=== PATIENT | male | born 1960 | race Caucasian/White ===

== ENCOUNTER 2017-08-16 11:57 | Outpatient (CLI) | payer MEDICARE ==
--- NOTE | 2017-08-16 13:25 | SJPRAD ---
RIGHT KNEE 4 VIEWS: Date: 08/16/17 HISTORY: Knee fracture. Knee pain. Follow-up. FINDINGS: Joint space narrowing is most pronounced at the medial compartment with prominent tricompartmental o steophytosis. No acute fracture or dislocation are apparent. Well corticated ossification at the sup erolateral margin of the patella has the appearance of a bipartite patella. There is anterior protru rommel on the oblique view. Osteochondroma projects posteriorly from the distal femoral shaft on the l ateral view. IMPRESSION: 1. Bipartite patella. 2. Osteochondroma posterior aspect distal right femoral shaft. 3. Osteoarthritis right knee. POS: [facility]
== END 2017-08-16 11:58 | disposition home or self-care (01) ==
LOC: MWLC RAD 11:57
PROVIDERS: ATTEND Internal Medicine Geriatric Medicine
DX: M25.561 Pain in right knee (principal); M17.11 Unilateral primary osteoarthritis, right knee; D16.21 Benign neoplasm of long bones of right lower limb; Q74.1 Congenital malformation of knee

== ENCOUNTER 2017-09-30 12:09 | Outpatient (CLI) | payer MEDICARE ==
[~2017-09-30 12:09] MED LIST: Iopamidol 370 76% 100 ML VIAL ONE
--- NOTE | 2017-09-30 15:41 | CT ---
EXAM: CT ANGIOGRAM OF THE CHEST 09/30/17 HISTORY: Possible aortic root aneurysm. COMPARISON: None. TECHNIQUE: CT angiogram of the chest is performed in the axial plane. Sagittal and coronal as well as oblique th ree dimensional reformatted images are submitted for interpretation. FINDINGS: No mediastinal mass, lymphadenopathy or hematoma. Heart size is within normal limits. No significant pericardial fluid. Minimal nonspecific right hilar fullness. There is adequate contrast opacification of the pulmonary arterial system to the level of the lobar arteries. No filling defect to suggest th romboembolism. Trachea and central bronchi are parent. No suspicious masses in the lung parenchyma. No consolidation . No pleural effusion. No pneumothorax. Minimal patchy ground glass opacities and linear opacities in both lower lobes. There are nonspecific and incompletely evaluated peripancreatic lymph node. 1.4 cm hyperdensity in th e right hepatic lobe may represent a flash filling hemangioma, incompletely evaluated. There are no l ytic or blastic lesions. The root of the aorta, ascending thoracic aorta, aortic arch, descending thoracic aorta and upper abd ominal aorta have a normal caliber. No aneurysm, dissection, or periaortic fat stranding. IMPRESSION: 1. No evidence of aneurysm with regards to the aorta. 2. Incompletely evaluated peripancreatic lymph nodes as well as presumed flash filling hemangiom a of the liver. Liver mass protocol CT or abdomen MRI can be performed. Code T POS: DEE
== END 2017-09-30 12:10 | disposition home or self-care (01) ==
LOC: CT 12:09
PROVIDERS: ATTEND Internal Medicine Cardiovascular Disease
DX: Z01.810 Encounter for preprocedural cardiovascular examination (principal); R06.02 Shortness of breath
CPT/HCPCS: 71275

== ENCOUNTER 2017-11-22 09:26 | Outpatient (CLI) | payer MEDICARE ==
[2017-11-22 13:49] LABS: #Eosinphils 0.1 thou/uL (0.0-0.7); #Lymphocytes 2.8 thou/uL (1.20-3.40); #Monocytes 0.7 thou/uL (0.11-0.59); #Neutrophils 4.1 thou/uL (1.40-6.50); %Basophils 0.4 % (0.0-1.0); %Eosinophils 0.9 % (0.0-10.0); %Monocytes 9.4 % (0.0-10.0); %Neutrophils 53.3 % (42.0-75.0); Hemoglobin 14.5 g/dL (14.0-18.0); Mean Corpuscular HGB CONC 33.7 g/dL (32.0-36.0); Mean Corpuscular Hemoglobin 30.7 pg (27.0-31.0); Mean Corpuscular Volume 90.9 fl (80.0-94.0); Platelet Count 198 thou/uL (130-400); Red Blood Cell (RBC) Count 4.73 mill/uL (4.70-6.10); White Blood Cell (WBC) Count 7.8 thou/uL (4.8-10.8)
[2017-11-22 13:52] LABS: Bilirubin Negative (Negative); Blood, Urine Negative (Negative); Clarity CLEAR (Clear); Glucose, Urine (Dipstick) Negative (Negative); Leukocyte Negative (Negative); Nitrite Negative (Negative); Protein, Urine (Dipstick) Negative (Neg-Trace); Prothrombin Time 13.4 SEC (12.0-14.7); Specific Gravity, Urine 1.011 (1.002-1.036); pH, Urine 7.5 (5.0-9.0)
[2017-11-22 13:58] LABS: Bacteria/HPF None Seen HPF (None Seen); Hyaline Casts/LPF 0-3 HYALINE CAST LPF (0-3 Hyaline); RBC/HPF 0-3 HPF (0-3); Squamous Epithelial None Seen HPF (0-3); WBC/HPF None Seen HPF (0-3)
[2017-11-22 14:43] LABS: Anion Gap 17 mmol/L (10-20); BUN (Urea Nitrogen) 12 mg/dL (8.4-25.7); Calc. Creatinine Clearance 0 mL/min (70-130); Calcium 9.1 mg/dL (7.8-10.44); Carbon Dioxide 25 mmol/L (22-29); Chloride 103 mmol/L (98-107); Estimated GFR-MDRD 82; Glucose 91 mg/dL (70-105); Potassium 4.5 mmol/L (3.5-5.1); Sodium 140 mmol/L (136-145)
--- NOTE | 2018-01-23 21:27 | EKG ---
Test Reason : Blood Pressure : / mmHG Vent. Rate : 053 BPM Atrial Rate : 053 BPM P-R Int : 158 ms QRS Dur : 100 ms QT Int : 440 ms P-R-T Axes : 053 045 026 degrees QTc Int : 412 ms Sinus bradycardia with Premature atrial complexes Otherwise normal ECG No previous ECGs available Confirmed by FENG PUENTE M.D. ([id number]) on 01/23/2018 9:27:07 PM Referred By: RUSSELL Confirmed By:FENG PUENTE M.D.
== END 2017-11-22 09:27 | disposition home or self-care (01) ==
LOC: LABBT 09:26
PROVIDERS: ATTEND Orthopaedic Surgery
DX: Z01.810 Encounter for preprocedural cardiovascular examination (principal); Z01.812 Encounter for preprocedural laboratory examination; M17.11 Unilateral primary osteoarthritis, right knee
CPT/HCPCS: 80048; 81001; 85025; 85610; 86850; 86900; 86901; 93005; 93010

== ENCOUNTER 2017-11-29 05:35 | Day surgery (SDC) | payer MEDICARE ==
[2017-11-22 09:37] VITALS: BMI 35.9
[2017-11-29] MEDS ORDERED: CEFAZOLIN/Water 2 GM/20 ML SYRINGE ONE (05:52)
[2017-11-29] MEDS ORDERED: Tranexamic Acid 1,000 MG/100 ML BAG ONE ×2 (05:52→10:00)
[2017-11-29] MEDS ORDERED: Fentanyl 100 MCG/2 ML VIAL ONE ×3 (06:27→10:18)
[2017-11-29] MEDS ORDERED: Midazolam HCl 2 mg/2 ml Vial ONE (06:27)
[2017-11-29] MEDS ORDERED: Ropivacaine 0.2% HCl/PF 20 ML ONE (06:27)
[2017-11-29] MEDS ORDERED: Bupivacaine 0.25% HCL 30 ML VIAL ONE (06:30)
[2017-11-29] MEDS ORDERED: Lidocaine 1% w/Epinephrine 1:200K 30 ML VIAL ONE (06:30)
[2017-11-29] MEDS ORDERED: HYDROmorphone 0.5 MG/0.5 ML SYRINGE ONE ×2 (08:04→08:11)
[2017-11-29] MEDS ORDERED: Promethazine HCl 25 MG/ML VIAL IM PRN ×3 (09:28→10:10)
[2017-11-29] MEDS ORDERED: Ondansetron HCl/PF 4 MG/2 ML Vial IVP PRN ×3 (09:28→10:10)
[2017-11-29] MEDS ORDERED: Zolpidem Tartrate 5 MG TAB PO PRN ×2 (09:28→10:10)
[2017-11-29] MEDS ORDERED: HYDROcodone/Acetaminophen 10/325 mg Tablet PO PRN ×2 (09:28)
[2017-11-29] MEDS ORDERED: Acetaminophen 325 MG TAB PO PRN (09:28)
[2017-11-29] MEDS ORDERED: diphenhydrAMINE 25 MG CAP PO PRN ×2 (09:28→10:10)
[2017-11-29] MEDS ORDERED: Fentanyl 100 MCG/2 ML VIAL SLOW IVP PRN ×2 (09:28)
[2017-11-29] MEDS ORDERED: traMADol HCl 50 MG TAB PO PRN (09:28)
[2017-11-29] MEDS ORDERED: Promethazine HCl 25 MG/ML VIAL SLOW IVP PRN (09:42)
[2017-11-29] MEDS ORDERED: diphenhydrAMINE 50 MG/ML VIAL IM/IV PRN (10:10)
[2017-11-29] MEDS ORDERED: Naloxone HCl 0.4 mg/ml Vial IV PRN (10:10)
[2017-11-29] MEDS ORDERED: Acetaminophen 1,000 MG in Premix Bag 1 BAG IVPB PRN (10:11)
[2017-11-29] MEDS ORDERED: fentaNYL Citrate/PF 2,000 MCG in Sodium Chloride 0.9% 60 ML IV PRN (10:15)
[2017-11-29] MEDS ORDERED: HYDROmorphone 2 MG/ML VIAL SLOW IVP PRN (10:52)
--- NOTE | 2017-11-29 11:09 | OP ---
DATE OF PROCEDURE: 11/29/2017 PREOPERATIVE DIAGNOSIS: Right knee osteoarthritis. POSTOPERATIVE DIAGNOSIS: Right knee osteoarthritis. PROCEDURE PERFORMED: Right total knee arthroplasty. STAFF: Nadeem Castro M.D. CAPACITOR ASSEMBLER: Don Cabral PA-C ANESTHESIA: Yamile. The patient received LMA, single shot Adductor and sciatic injection ESTIMATED BLOOD LOSS: 100 mL. TOURNIQUET TIME: 89 minutes at 300 mmHg. ANTIBIOTICS: Vancomycin 2 grams, Ancef 2 grams. IMPLANTS: [place] triatholon size 7 tibia, size 7 CR femur, 11 mm CS poly, A35 symmetric poly Triathlon [place] X3 poly. COMPLICATIONS: None. HISTORY OF PRESENT ILLNESS: Mr. Chan is a pleasant 57-year-old male with multiple medical problems, history of a traumatic brain injury, history of hepatitis C. The patient has a history of a stroke, history of Staph infection, partial paralysis and heart disease. The patient presented with a right knee osteoarthritis. I discussed with patient the risks and benefits of a right total knee arthroplasty to include pain, scar, bleeding, infection, and damage to vital structures, decreased range of motion or strength, failure of procedure , continued pain despite surgical intervention, failure of procedure, decreased range of motion or strength, need for further surgeries, damage to vital structures, loss of life or limb. The patient understood these risks and benefits and elected to proceed. PROCEDURE IN DETAIL: A timeout was performed designating the patient's right lower extremity as the operative site based on sight, consents and markings. After timeout, the tourniquet was brought up and left up for a total of 90 minutes. The patient had intramedullary medial patellar arthrotomy. He had a bipartite patella, had large osteophytes. After we had done our medial approach the medial soft tissue release, we did fat pad excision. We then everted the patella, subluxed the patella, started mapping out our distal femur , cut 0 degrees varus valgus, 10, 11 and 4 degrees posterior slope. We cut the patient's bone, no notch, he had a little bit of flexion contracture. We were able to take 4 mm of the cartilage, 2 mm more of the cartilage. We then placed and sized a 7. I liked the overall position of the 7. We then cut our box for our 7 based on 30 degrees of external rotation of the epicondyle axis. We removed the osteophytes. We then removed the bone fragments. We then placed our pickle fork in position, released our PCL, exposed our proximal tibia, mapped out the tibia and cut in -170 degrees varus valgus and 5 degrees posterior slope. We removed the osteophytes, placed our lamina job honer, removed the posterior osteophytes, decompressed the PCL, removed the posterior osteophytes from the help of our extension, removed our medial osteophytes with osteotome and to protect our MCL, we then removed our medial and lateral meniscus. We then trialed with a 7 tray and 9, moved up to an 11. He had good extension, good stability, flexion and extension, good translation overall, had good overall alignment. We then everted the patella, went from 24 to about 14 mm and placed an A32 patella, and removed all osteophytes. The patient had good tracking of the femur, I liked the overall alignment. We then removed our final components, drilled our holes for our femur and cut our keel for our tibia. We then cemented our tibia, placed our poly, removed the excess cement, placed our femur, removed excess cement and cemented our patellar, closed with # 2 Vicryl, 2 Quill, 0 Quill, 2-0 Quill, and glue. The patient will be observed overnight. The patient will be followed in-house by Anesthesia for a block. The patient's outlook is guarded. He may require a rehab consult. LULA
[2017-11-29] MEDS: Ketorolac Tromethamine 30 MG/ML VIAL IVP SCH ×2 (12:45→17:54)
[2017-11-29] MEDS: Dextrose 5 %-0.45 % NaCl 1,000 ML IV SCH ×2 (12:46→20:06)
[2017-11-29] MEDS ORDERED: Diabetic Tussin 200 MG/10 ML UDCUP PO PRN (13:47)
[2017-11-29] MEDS ORDERED: Sodium Chloride 0.65% Nasal 44 ML BOT EA NARE PRN (13:47)
[2017-11-29] MEDS ORDERED: Chloraseptic Spray 180 ml Bottle PO PRN (13:47)
[2017-11-29] MEDS ORDERED: Mag-Al 1200 mg/1200 mg/30 ML UDCUP PO PRN (13:47)
[2017-11-29] MEDS ORDERED: Bisacodyl 10 MG SUPP PR PRN (13:47)
[2017-11-29] MEDS ORDERED: Milk Of Magnesia 30 ML UDCUP PO PRN (13:47)
[2017-11-29] MEDS ORDERED: Loratadine 10 MG TAB PO PRN (13:47)
[2017-11-29] MEDS ORDERED: Senokot 8.6 MG TAB PO PRN (13:47)
[2017-11-29] MEDS ORDERED: hydrALAZINE 20 MG/ML VIAL SLOW IVP PRN (13:47)
[2017-11-29] MEDS ORDERED: HYDROcodone/Acetaminophen 5/325 mg Tablet PO PRN (13:47)
[2017-11-29] MEDS ORDERED: Artificial Tear Sol 15 ML BOT EA EYE PRN (13:47)
[2017-11-29] MEDS ORDERED: Loperamide HCl 2 MG CAP PO PRN (13:47)
[2017-11-29] MEDS ORDERED: Eucerin (Mineral Oil/Petrolatum,White) 30 gm Jar TOP PRN (13:47)
[2017-11-29] MEDS ORDERED: Ketorolac Tromethamine 30 MG/ML VIAL IVP SCH (14:00)
--- NOTE | 2017-11-29 14:20 | PDOC.PN ---
- Subjective Encounter Start Date: 11/29/17 Encounter Start Time: 14:19 -: old records requested/rev Patient seen and examined. No new complaints. No overnight events s/p Knee replacement, nerve block did not work, so PAPER CONSERVATOR started, he required oxygen for low sats, no chest pain, dizziness - Objective MAR Reviewed: Yes Vital Signs & Weight: Vital Signs (12 hours) Temp Pulse Resp BP Pulse Ox 11/29/17 13:35 97.7 F 81 16 136/95 H 81 L Weight Weight 280 lb 0.005 oz Phys Exam - Physical Examination Constitutional: NAD HEENT: PERRLA, moist MMs, sclera anicteric Neck: no JVD, supple Respiratory: no wheezing, no rales, no rhonchi Cardiovascular: RRR, no significant murmur, no rub Gastrointestinal: soft, non-tender, no distention, positive bowel sounds obesity Musculoskeletal: no edema, pulses present right knee with dressing Neurological: non-focal, normal sensation Psychiatric: normal affect, A&O x 3 Skin: no rash, normal turgor Dx/Plan (1) Status post total right knee replacement Code(s): Z96.651 - PRESENCE OF RIGHT ARTIFICIAL KNEE JOINT Status: Acute (2) Dyslipidemia Code(s): E78.5 - HYPERLIPIDEMIA, UNSPECIFIED Status: Chronic Comment: not on any treatment (3) Anxiety and depression Code(s): F41.8 - OTHER SPECIFIED ANXIETY DISORDERS Status: Chronic Comment: not on treatment (4) Obesity (BMI 30-39.9) Code(s): E66.9 - OBESITY, UNSPECIFIED Status: Chronic (5) Dementia Code(s): F03.90 - UNSPECIFIED DEMENTIA WITHOUT BEHAVIORAL DISTURBANCE Status: Chronic Qualifiers: Dementia type: unspecified type Dementia behavioral disturbance: without behavioral disturbance Qualified Code(s): F03.90 - Unspecified dementia without behavioral disturbance Comment: mild after head injury - Plan cont current plan of care, PT/OT * Continue aspirin 81 mg po bid for DVT prophylaxis * PRN order written * Pepcid for GI prophylaxis * continue PT/OT as per [facility] protocol * pain control * continue ferrous gluconate * medication reviewed as below * symptomatic treatment * code status- Full code. * discussed with bedside * continue PAPER CONSERVATOR for pain control Review of Systems - Review of Systems Eyes: negative: Pain, Vision Change, Conjunctivae Inflammation, Eyelid Inflammation, Redness, Other ENT: negative: Ear Pain, Ear Discharge, Nose Pain, Nose Discharge, Nose Congestion, Mouth Pain, Mouth Swelling, Throat Pain, Throat Swelling, Other Respiratory: negative: Cough, Dry, Shortness of Breath, Hemoptysis, SOB with Excertion, Pleuritic Pain, Sputum, Wheezing Cardiovascular: negative: chest pain, palpitations, orthopnea, paroxysmal nocturnal dyspnea, edema, light headedness, other Gastrointestinal: negative: Nausea, Vomiting, Abdominal Pain, Diarrhea, Constipation, Melena, Hematochezia, Other Genitourinary: negative: Dysuria, Frequency, Incontinence, Hematuria, Retention , Other Musculoskeletal: negative: Neck Pain, Shoulder Pain, Arm Pain, Back Pain, Hand Pain, Leg Pain, Foot Pain, Other Skin: negative: Rash, Lesions, Tyler, Bruising, Other - Medications/Allergies Allergies/Adverse Reactions: Allergies Allergy/AdvReac Type Severity Reaction Status Date / Time No Known Allergies Allergy Unverified 11/22/17 09:37 Medications: Current Medications Acetaminophen (Tylenol) 650 mg PO Q4H PRN PRN Reason: ROJAS/ T > 101F; Mild Pain (1-3) Hydrocodone Bitart/Acetaminophen ([place] 5/325) 1 tab PO Q4H PRN PRN Reason: Moderate Pain (4-6) Al Hydroxide/Mg Hydroxide (Maalox) 15 ml PO Q4H PRN PRN Reason: Heartburn or Indigestion Artificial Tears (Tears Renewed 15ml Bottle) 0 drop EA EYE PRN PRN PRN Reason: Dry Eyes Aspirin (Ecotrin) 81 mg PO BID KELSY Bisacodyl (Dulcolax) 10 mg DE DAILYPRN PRN PRN Reason: Constipation Cefazolin Sodium (Ancef) 2 gm SLOW IVP Q8HR [facility] Stop: 11/29/17 22:01 Diphenhydramine HCl (Benadryl) 25 mg PO Q6H PRN PRN Reason: Itching Diphenhydramine HCl (Benadryl) 25 mg IM/IV Q3H PRN PRN Reason: Itching Diphenhydramine HCl (Benadryl) 25 mg PO Q3H PRN PRN Reason: Itching Famotidine (Pepcid) 20 mg PO BID [facility] Ferrous Gluconate (Fergon) 324 mg PO BID [facility] Guaifenesin (Robitussin Sf) 200 mg PO Q4H PRN PRN Reason: Cough Hydralazine HCl (Apresoline) 10 mg SLOW IVP Q4H PRN PRN Reason: Systolic BP > 180 Dextrose/Sodium Chloride (D5 1/2 Ns) 1,000 mls @ 100 mls/hr IV .Q10H [facility] Last Admin: 11/29/17 12:46 Dose: 1,000 mls Vancomycin HCl 2 gm/ Sodium (Chloride) 500 mls @ 250 mls/hr IVPB 1830 [facility] Stop: 11/29/17 20:30 Acetaminophen 1,000 mg/ Device 100 mls @ 400 mls/hr IVPB Q6H PRN PRN Reason: Fever/Mild Pain Stop: 11/30/17 10:12 Fentanyl Citrate 2,000 mcg/ (Sodium Chloride) 100 mls @ 0 mls/hr IV INF PRN; As Directed PRN Reason: Pain Iron/Minerals/Multivitamins (Theragran M) 1 tab PO DAILY [facility] Ketorolac Tromethamine (Toradol) 30 mg IVP Q6HR [facility] Stop: 12/01/17 06:01 Last Admin: 11/29/17 12:45 Dose: 30 mg Loperamide HCl (Imodium) 2 mg PO PRN PRN PRN Reason: Diarrhea/Loose Stools Loratadine (Claritin) 10 mg PO DAILYPRN PRN PRN Reason: Sinus Symptoms Magnesium Hydroxide (Milk Of Magnesium) 30 ml PO DAILYPRN PRN PRN Reason: Constipation Mineral Oil/White Petrolatum (Eucerin Cream) 0 gm TOP BIDPRN PRN PRN Reason: Dry Skin Naloxone HCl (Narcan) 0.2 mg IV Q5MIN PRN PRN Reason: RR <8 or pt obtun/unarousable Ondansetron HCl (Zofran) 4 mg IVP Q6H PRN PRN Reason: Nausea/Vomiting Ondansetron HCl (Zofran) 4 mg IVP Q6H PRN PRN Reason: Nausea/Vomiting Phenol (Chloraseptic [place] 180 Ml Bot) 0 ml PO PRN PRN PRN Reason: Sore Throat Promethazine HCl (Phenergan) 12.5 mg IM Q4H PRN PRN Reason: Nausea/Vomiting Promethazine HCl (Phenergan) 12.5 mg IM Q4H PRN PRN Reason: Nausea/Vomiting Senna (Senokot) 2 tab PO HSPRN PRN PRN Reason: Constipation Senna/Docusate Sodium (Senokot S) 2 tab PO BID KELSY Sodium Chloride (Flush - Normal Saline) 10 ml IVF PRN PRN PRN Reason: Saline Flush Sodium Chloride ([place] Nasal [place] 0.65%) 0 ml EA NARE QIDPRN PRN PRN Reason: Nasal Congestion Zolpidem Tartrate (Ambien) 5 mg PO HSPRN PRN PRN Reason: Insomnia History of Present Illnes - History of Present Illness Reason for Visit: RIGHT KNEE REPLACEMENT History of Present Illness: CONSULT FOR MEDICAL MANAGEMENT - Past Medical History Cardiac: Hyperlipidemia 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
[2017-11-29] MEDS ORDERED: Morphine 5 MG/ML SYRINGE SLOW IVP PRN (15:08)
[2017-11-29] MEDS ORDERED: Ropivacaine 0.5% HCl/PF (150 MG/30 ML VIAL) ONE (15:53)
[2017-11-29] MEDS: CEFAZOLIN/Water 2 GM/20 ML SYRINGE SLOW IVP SCH ×2 (15:53→21:14)
[2017-11-29] MEDS ORDERED: Dexamethasone 20 MG/5 ML VIAL ONE (16:13)
[2017-11-29] MEDS ORDERED: PROPOFOL 200 MG/20 ML VIAL ONE (16:13)
[2017-11-29] MEDS ORDERED: Lidocaine 1% PF 5 ML VIAL ONE (16:13)
[2017-11-29] MEDS ORDERED: Ondansetron HCl/PF 4 MG/2 ML Vial ONE (16:13)
[2017-11-29] MEDS: Aspirin 81 mg Enteric Coated Tablet PO SCH (20:15)
[2017-11-29] MEDS: Famotidine 20 MG TAB PO SCH (20:15)
[2017-11-30] MEDS: Ketorolac Tromethamine 30 MG/ML VIAL IVP SCH ×5 (00:15→21:54)
[2017-11-30] MEDS: Dextrose 5 %-0.45 % NaCl 1,000 ML IV SCH ×3 (04:54→22:22)
[2017-11-30 05:30] LABS: Hemoglobin 11.9 g/dL (14.0-18.0); Mean Corpuscular HGB CONC 33.5 g/dL (32.0-36.0); Mean Corpuscular Hemoglobin 30.7 pg (27.0-31.0); Mean Corpuscular Volume 91.6 fl (80.0-94.0); Mean Platelet Volume 7.7 fL (7.4-10.4); Platelet Count 191 thou/uL (130-400); RBC Distribution Width 11.9 % (11.5-14.5); Red Blood Cell (RBC) Count 3.87 mill/uL (4.70-6.10); White Blood Cell (WBC) Count 9.8 thou/uL (4.8-10.8)
[2017-11-30] MEDS: Ferrous Gluconate 324 MG TAB PO SCH ×2 (09:07→20:25)
[2017-11-30] MEDS: Aspirin 81 mg Enteric Coated Tablet PO SCH ×2 (09:07→20:26)
[2017-11-30] MEDS: Famotidine 20 MG TAB PO SCH ×2 (09:07→20:25)
[2017-11-30] MEDS: Senokot S 8.6-50 MG TAB PO SCH ×2 (09:07→20:25)
[2017-11-30] MEDS: Multivitamin W/ Minerals 1 TAB PO SCH (09:07)
--- NOTE | 2017-11-30 09:44 | PRG ---
DATE OF SERVICE: 11/30/2017 SUBJECTIVE: Mr. Chan is a 57-year-old male, who is postop day #1 from right total knee arthroplas ty. He is doing relatively well, but did require MMA FIGHTER with fentanyl for pain control. OBJECTIVE: He is alert and oriented to person, place, time, and situation. Grossly nonfocal. Curre ntly, looks comfortable. He is neurovascularly intact in the right lower extremity with dorsiflexion , inversion, eversion all being 5/5. Incision is clean and closed without any erythema. LABORATORY DATA: Hemoglobin and hematocrit are stable. IMPRESSION: A 57-year-old white male postoperative day #1 right total knee arthroplasty, doing well. PLAN: Continue current management. Hold discharge for tonight if he is still requiring MMA FIGHTER. Otherw ise, plan for discharge home today. [place], dispensed 100, prescription is on the chart, dosage is 10 /325.
--- NOTE | 2017-11-30 10:52 | DIS ---
DATE OF ADMISSION: 11/29/2017 DATE OF DISCHARGE: 11/30/2017 PRIMARY CARE PHYSICIAN: Daniella Frederick M.D. DISCHARGE DISPOSITION: Home. PRIMARY DISCHARGE DIAGNOSES: Status post right total knee replacement. SECONDARY DISCHARGE DIAGNOSES: Anxiety, depression, dementia, dyslipidemia, obesity with body mass i ndex of 35. PRIMARY PROCEDURES/OPERATIONS: Right total knee replacement. RADIOLOGICAL INVESTIGATION: None. SIGNIFICANT LABORATORY DATA: Hemoglobin 11.9, WBC 9.8, and platelets 191. DISCHARGE MEDICATIONS: Patient will have pain medication as ordered by primary team. He will contin ue aspirin 81 mg p.o. b.i.d. for DVT prophylaxis. The patient is instructed to use Pepcid over-the-c ounter basis if needed for acid reflux while on aspirin. The patient will follow up with primary care physician for dyslipidemia, anxiety, depression treatmen t if warranted. CONTRAINDICATIONS: None. CODE STATUS: Full. INPATIENT CONSULTANTS: Dr. Castro was primary who did surgery and Sound Team was consulted for [facility] comanagement. TEST RESULTS PENDING ON DISCHARGE: None. ALLERGIES: No known drug allergy. DISCHARGE PLAN: Post hospital, the patient will follow up with outpatient rehabilitation as well as Dr. Daniella Frederick and Dr. Castro as instructed. HOSPITAL COURSE: A 57-year-old male who was admitted by Dr. Castro for right total knee replacement after surgery and Sound team was consulted for medical comanagement. This patient was doing relativ eleanor well. Initially, his nerve block did not work well and that is why he required TOW PICKER pump for pain control. His pain was next day well controlled and he was doing much better. He was initially requ iring oxygen, but after that his oxygen requirement was turned off. At this point, the patient will continue his PT, OT as per [facility] protocol treatment, but m ost likely this patient will be discharged later on today and he will be given oral pain medication b y primary team. He will continue aspirin 81 mg p.o. b.i.d. for DVT prophylaxis. Patient will follow up with primary care physician and orthopedic physician as instructed. The patient is seen and examined at bedside today. Plan of care discussed with the patient and at bedside. All review of systems was reviewed with him and negative. PHYSICAL EXAMINATION: VITAL SIGNS: Currently, temperature 98.1, pulse 77, respiratory rate 16, saturation 93% on room air, blood pressure 166/61, weight 280 pounds. GENERAL: The patient is currently alert, awake, no acute distress. HEAD: Normocephalic, atraumatic. EYES: Pupils round, reactive to light. Extraocular muscles intact. ENT: Oropharynx within normal limits. Moist mucous membranes. No oral lesions. No pharyngeal eryt beto, no exudates. NECK: Supple, no JVD, no thyromegaly, no carotid bruit. No jugular venous distention. LUNGS: Clear to auscultation without any rhonchi or rales. CARDIAC: S1, S2 regular without any murmur. ABDOMEN: Soft and benign. Obesity present. EXTREMITIES: No edema. Surgical site is clean and healthy. NEUROLOGIC: Nonfocal examination. The patient is medically stable for discharge and we will sign off.
[2017-11-30] MEDS ORDERED: HYDROcodone/Acetaminophen 10/325 mg Tablet PO PRN ×3 (16:55→17:14)
[2017-11-30] MEDS: HYDROcodone/Acetaminophen 10/325 mg Tablet PO PRN ×2 (17:59→21:55)
[2017-12-01] MEDS: HYDROcodone/Acetaminophen 10/325 mg Tablet PO PRN ×3 (03:59→11:37)
[2017-12-01] MEDS: Ketorolac Tromethamine 30 MG/ML VIAL IVP SCH (04:00)
[2017-12-01 04:39] LABS: Hemoglobin 11.3 g/dL (14.0-18.0); Mean Corpuscular HGB CONC 33.6 g/dL (32.0-36.0); Mean Corpuscular Hemoglobin 30.8 pg (27.0-31.0); Mean Corpuscular Volume 91.7 fl (80.0-94.0); Mean Platelet Volume 7.6 fL (7.4-10.4); Platelet Count 160 thou/uL (130-400); RBC Distribution Width 11.8 % (11.5-14.5); Red Blood Cell (RBC) Count 3.66 mill/uL (4.70-6.10); White Blood Cell (WBC) Count 8.7 thou/uL (4.8-10.8)
[2017-12-01] MEDS: Senokot S 8.6-50 MG TAB PO SCH (07:38)
[2017-12-01] MEDS: Famotidine 20 MG TAB PO SCH (07:39)
[2017-12-01] MEDS: Multivitamin W/ Minerals 1 TAB PO SCH (07:39)
[2017-12-01] MEDS: Ferrous Gluconate 324 MG TAB PO SCH (07:39)
[2017-12-01] MEDS: Aspirin 81 mg Enteric Coated Tablet PO SCH (07:39)
--- NOTE | 2017-12-01 10:54 | DIS ---
DATE OF ADMISSION: 11/29/2017 DATE OF DISCHARGE: 12/01/2017 PREOPERATIVE DIAGNOSIS: Right knee osteoarthritis. DISCHARGE DIAGNOSIS: Right knee osteoarthritis. PROCEDURE: The patient underwent a right total knee arthroplasty. HOSPITAL COURSE: Hospital stay was unremarkable. The patient was admitted to [address] he worked with staff, physical therapy, occupational therapy, and progressed quite well. By postoperative day #2, he was doing well enough that he would like to discharge home. DISCHARGE CONDITION: Good/stable. DISPOSITION: Home with family. FOLLOWUP: Followup would be in 2-3 weeks, sooner if there are problems or concerns. DISCHARGE MEDICATIONS: Given with usage instructions. Tayo Head PA-C dictating for Dr. Castro.
[2017-12-01 11:43] VITALS: BP 121/85; TEMP 98.7
== END 2017-12-01 11:59 | disposition home or self-care (01) ==
LOC: SDC 05:35 → SURG A 09:28 → SDC 12-01 11:59
PROVIDERS: ATTEND Orthopaedic Surgery
PROC: 0SRC0J9 Replacement of Right Knee Joint with Synthetic Substitute, Cemented, Open Approach (ICD-10-PCS; principal; 2017-11-29)
DX: M17.11 Unilateral primary osteoarthritis, right knee (principal); E78.5 Hyperlipidemia, unspecified; F03.90 Unspecified dementia, unspecified severity, without behavioral disturbance, psychotic disturbance, mood disturbance, and anxiety; F41.8 Other specified anxiety disorders; E66.9 Obesity, unspecified; Z68.35 Body mass index [BMI] 35.0-35.9, adult; Z79.82 Long term (current) use of aspirin; Z79.899 Other long term (current) drug therapy; Z90.49 Acquired absence of other specified parts of digestive tract; Z98.890 Other specified postprocedural states
CPT/HCPCS: 27447; 85027; 97110; 97116 ×3; 97139; 97530 ×2; C1713; C1776; G8978; G8979; J3010; 36415; J0131; J1100; J1170; J1885; J2001; J2250; J2405; J2550; J2704; J2795; J3370; J7050; S0020

== ENCOUNTER 2019-04-23 06:32 | Outpatient (CLI) | payer MEDICARE ==
--- NOTE | 2019-04-23 09:06 | ULT ---
HEPATIC DOPPLER: HISTORY: Hepatitis C. COMPARISON: None. TECHNIQUE: Haq scale, color flow, Doppler imaging, and spectral waveform analysis was performed of the liver. FINDINGS: Pancreas is obscured by bowel gas. Hepatic parenchyma has a normal echotexture. No hepatic masses or intrahepatic biliary dilatation. The contour of the hepatic margin is maintained. Right hepatic lobe measures 16.3 cm. No sonographic evidence of cholelithiasis, gallbladder wall thickening, or pericholecystic fluid. Ne gative Jerome's sign. Common bile duct diameter is 0.5 cm. Spleen has a normal echotexture measuring 12.5 cm. HEPATIC DOPPLER: There is patency and appropriate directional flow in the hepatic artery, main portal vein, right port al vein, left portal vein, left hepatic vein, middle hepatic vein, right hepatic vein. There is abel ncy and appropriate directional flow in the spleen vein and artery. Suboptimal evaluation of the IVC and aorta. IMPRESSION: 1. Normal hepatic Doppler. 2. Unremarkable hepatic parenchymal echotexture. POS: OFF
== END 2019-04-23 06:33 | disposition home or self-care (01) ==
LOC: BICULT 06:32
PROVIDERS: ATTEND Physician Assistant Medical
DX: K21.9 Gastro-esophageal reflux disease without esophagitis (principal); Z86.19 Personal history of other infectious and parasitic diseases
CPT/HCPCS: 76705

== ENCOUNTER 2019-06-25 08:09 | Emergency (ER) | payer MEDICARE ==
[2019-06-25 08:32] LABS: #Basophils 0.1 thou/uL (0.0-0.2); #Eosinphils 0.1 thou/uL (0.0-0.7); #Monocytes 0.7 thou/uL (0.11-0.59); #Neutrophils 3.7 thou/uL (1.40-6.50); %Eosinophils 1.3 % (0.0-10.0); %Lymphocytes 30.7 % (21.0-51.0); %Monocytes 11.1 % (0.0-10.0); %Neutrophils 55.9 % (42.0-75.0); Hemoglobin 15.1 g/dL (14.0-18.0); Mean Corpuscular HGB CONC 34.3 g/dL (32.0-36.0); Mean Corpuscular Hemoglobin 30.4 pg (27.0-31.0); Mean Corpuscular Volume 88.4 fL (78.0-98.0); Mean Platelet Volume 8.1 fL (7.4-10.4); Platelet Count 203 thou/uL (130-400); RBC Distribution Width 12.3 % (11.5-14.5); Red Blood Cell (RBC) Count 4.96 mill/uL (4.70-6.10); White Blood Cell (WBC) Count 6.6 thou/uL (4.8-10.8)
[2019-06-25 08:48] LABS: ALT (SGPT) 18 U/L (8-55); AST (SGOT) 22 U/L (5-34); Albumin 4.6 g/dL (3.5-5.0); Alkaline Phosphatase 63 U/L (40-150); Anion Gap 14 mmol/L (10-20); BUN (Urea Nitrogen) 13 mg/dL (8.4-25.7); Bilirubin, Total 0.4 mg/dL (0.2-1.2); CK (CPK) 176 U/L (30-200); Calc. Creatinine Clearance 0 mL/min (70-130); Calcium 9.3 mg/dL (7.8-10.44); Carbon Dioxide 23 mmol/L (22-29); Chloride 105 mmol/L (98-107); Estimated GFR-MDRD 77; Globulin 3.1 g/dL (2.4-3.5); Glucose 98 mg/dL (70-105); Lipase 36 U/L (8-78); Potassium 3.7 mmol/L (3.5-5.1); Protein, Total 7.7 g/dL (6.0-8.3); Sodium 138 mmol/L (136-145)
--- NOTE | 2019-06-25 09:26 | CT ---
EXAM: Brain CTWithout contrast: HISTORY: Injury from a fall COMPARISON: 01/08/2017 FINDINGS: No focal mass or midline shift. No intra or extra-axial hemorrhage. Complete opacification of the right mastoid and partial opacification of the right frontal and right ethmoid sinus region showing minimal progression from the prior of 01/08/2017 study. IMPRESSION: No mass or bleed or other significant acute intracranial process.
--- NOTE | 2019-06-25 09:30 | CT ---
EXAM: CT scan cervical spineWithout contrast: HISTORY: Injury from a fall COMPARISON: None FINDINGS: No evidence for acute fracture or facet dislocation. No significant malalignment. No prevertebral soft tissue swelling. Multilevel disc osteophytosis with some variable severity canal, lateral recess, and foraminal stenos is, most marked at C5-C6. IMPRESSION: No evidence for acute fracture or facet dislocation or other significant acute process.
--- NOTE | 2019-06-25 09:33 | RAD ---
EXAM: Chest one view: HISTORY: Dizziness syncope. Headache COMPARISON: None FINDINGS: Heart size: Within normal limits. Lungs: Clear of acute process. No evidence for pneumonia, pleural effusion, acute edema, or pneumothorax, or other significant acute process. IMPRESSION: No significant acute intrathoracic disease.
== END 2019-06-25 13:02 | disposition home or self-care (01) ==
LOC: ERS 08:09
DX: S00.81XA Abrasion of other part of head, initial encounter (principal); S80.211A Abrasion, right knee, initial encounter; I10 Essential (primary) hypertension; F41.9 Anxiety disorder, unspecified; F32.9 Major depressive disorder, single episode, unspecified; Z87.891 Personal history of nicotine dependence; Z79.899 Other long term (current) drug therapy; X50.1XXA Overexertion from prolonged static or awkward postures, initial encounter
CPT/HCPCS: 70450; 71045; 72125; 80053; 82550; 83690; 84484; 85025; 93005; 94760; 96360

== ENCOUNTER 2021-04-22 16:06 | Observation (INO) | payer MEDICARE, MEDICAID ==
[2021-04-22 17:20] LABS: #Eosinphils 0.1 thou/uL (0.0-0.7); #Lymphocytes 2.8 thou/uL (1.20-3.40); #Monocytes 0.8 thou/uL (0.11-0.59); #Neutrophils 4.5 thou/uL (1.40-6.50); %Basophils 0.3 % (0.0-1.0); %Eosinophils 1.1 % (0.0-10.0); %Lymphocytes 33.7 % (21.0-51.0); %Monocytes 9.8 % (0.0-10.0); Hemoglobin 15.7 g/dL (14.0-18.0); Mean Corpuscular HGB CONC 35.2 g/dL (32.0-36.0); Mean Corpuscular Hemoglobin 30.5 pg (27.0-31.0); Mean Corpuscular Volume 86.7 fL (78.0-98.0); Mean Platelet Volume 7.5 fL (7.4-10.4); Platelet Count 229 thou/uL (130-400); RBC Distribution Width 12.3 % (11.5-14.5); Red Blood Cell (RBC) Count 5.16 mill/uL (4.70-6.10); White Blood Cell (WBC) Count 8.1 thou/uL (4.8-10.8)
[2021-04-22 17:43] LABS: ALT (SGPT) 16 U/L (8-55); AST (SGOT) 19 U/L (5-34); Albumin 4.6 g/dL (3.4-4.8); Alkaline Phosphatase 65 U/L (40-110); Anion Gap 17 mmol/L (10-20); BUN (Urea Nitrogen) 16 mg/dL (8.4-25.7); Bilirubin, Total 0.5 mg/dL (0.2-1.2); Calc. Creatinine Clearance 0 mL/min (70-130); Calcium 9.3 mg/dL (7.8-10.44); Carbon Dioxide 21 mmol/L (23-31); Chloride 104 mmol/L (98-107); Glucose 96 mg/dL (80-115); Potassium 4.2 mmol/L (3.5-5.1); Protein, Total 7.6 g/dL (5.8-8.1); Sodium 138 mmol/L (136-145)
[2021-04-22] MEDS ORDERED: Aspirin Chewable 81 MG TAB ONE (19:19)
[2021-04-22 23:15] LABS: Troponin I Less than 0.010 ng/mL (< 0.028)
[2021-04-23 01:52] LABS: Troponin I Less than 0.010 ng/mL (< 0.028)
[2021-04-23] MEDS ORDERED: Acetaminophen 325 MG TAB PO PRN (02:26)
[2021-04-23] MEDS ORDERED: Nitroglycerin 0.4 MG TAB (25 Tab Bottle) SL PRN (02:30)
[2021-04-23 06:30] LABS: #Eosinphils 0.1 thou/uL (0.0-0.7); #Lymphocytes 2.5 thou/uL (1.20-3.40); #Monocytes 0.7 thou/uL (0.11-0.59); #Neutrophils 3.8 thou/uL (1.40-6.50); %Basophils 0.5 % (0.0-1.0); %Eosinophils 1.7 % (0.0-10.0); %Lymphocytes 34.4 % (21.0-51.0); %Monocytes 9.8 % (0.0-10.0); %Neutrophils 53.6 % (42.0-75.0); Hemoglobin 15.2 g/dL (14.0-18.0); Mean Corpuscular HGB CONC 35.5 g/dL (32.0-36.0); Mean Corpuscular Hemoglobin 30.9 pg (27.0-31.0); Mean Platelet Volume 7.9 fL (7.4-10.4); Platelet Count 208 thou/uL (130-400); RBC Distribution Width 12.3 % (11.5-14.5); Red Blood Cell (RBC) Count 4.94 mill/uL (4.70-6.10); White Blood Cell (WBC) Count 7.1 thou/uL (4.8-10.8)
[2021-04-23 06:46] LABS: Anion Gap 14 mmol/L (10-20); BUN (Urea Nitrogen) 16 mg/dL (8.4-25.7); Calc. Creatinine Clearance 0 mL/min (70-130); Calcium 9.2 mg/dL (7.8-10.44); Carbon Dioxide 22 mmol/L (23-31); Chloride 105 mmol/L (98-107); Glucose 92 mg/dL (80-115); Sodium 137 mmol/L (136-145)
[2021-04-23] MEDS ORDERED: Regadenoson 0.4 MG/5 ML SYRINGE ONE (08:42)
[2021-04-23 18:30] LABS: Cocaine Metabolite Screen Not Detected (NotDetected); Medtox Reader # READER 4; Methamphetamine Not Detected (NotDetected); Phencyclidine (PCP) Not Detected (NotDetected); THC/Cannabinoid Screen Detected (NotDetected)
[2021-04-23 18:31] LABS: Amphetamine Not Detected (NotDetected); Barbiturates Screen Not Detected (NotDetected); Benzodiazepine Screen Not Detected (NotDetected); Medtox Control Line Valid? VALID (VALID); Methadone Not Detected (NotDetected); Opiate Screen Not Detected (NotDetected); Oxycodone Screen Not Detected (NotDetected); Tricyclic Screen Not Detected (NotDetected)
[2021-04-24] MEDS ORDERED: Aspirin 81 mg Enteric Coated Tablet PO SCH (09:00)
[2021-04-24 10:45] LABS: Cardiac Risk 4.8 (Less than 4.5)
[2021-04-24 12:11] VITALS: BP 135/90; TEMP 97.4
[2021-04-24] MEDS ORDERED: Atorvastatin Calcium 40 MG TAB PO SCH (21:00)
== END 2021-04-24 13:55 | disposition home or self-care (01) ==
LOC: ERS 16:06 → ERHOLD 22:08 → 2SW 04-23 14:14
PROVIDERS: ADMIT Internal Medicine; ATTEND Internal Medicine
DX: R07.9 Chest pain, unspecified (principal); R55 Syncope and collapse; I77.9 Disorder of arteries and arterioles, unspecified; Z66 Do not resuscitate; F15.11 Other stimulant abuse, in remission; Z72.89 Other problems related to lifestyle
CPT/HCPCS: 70450; 71045; 78452; 80048; 80053; 80061; 80306; 84484 ×3; 85025 ×2; 93005; 93017; 93306; 93880; 94760 ×2; 99285; A9500; G0378 ×4; 36415; J2785